=== PATIENT | male | born 2000 | race Two or more races ===

== ENCOUNTER 2022-03-17 11:47 | Emergency (ER) | payer BC ==
[2022-03-17] MEDS ORDERED: Triamcinolone Acetonide 40 MG/ML 1 ML SDV INJECT ONE (12:04)
== END 2022-03-17 12:15 | disposition home or self-care (01) ==
LOC: VM.ED 11:47
DX: R21 Rash and other nonspecific skin eruption (principal); T38.0X5A Adverse effect of glucocorticoids and synthetic analogues, initial encounter; Z88.0 Allergy status to penicillin; Z79.899 Other long term (current) drug therapy
CPT/HCPCS: 99282; J3301